=== PATIENT | female | born 1985 | race Caucasian/White ===

== ENCOUNTER → 2022-04-01 14:49 | Outpatient (BNVA) | payer MEDICAID, SELFPAY | PROVIDERS: Family Provider Family Medicine; PCP Family Medicine; Referring Provider Nurse Practitioner Family; Visit Provider Physician Assistant | DX: M54.16 Radiculopathy, lumbar region (principal); M51.36 Other intervertebral disc degeneration, lumbar region | CPT/HCPCS: 72110 ==

== ENCOUNTER 2022-04-30 18:40 | Inpatient (IN) | payer MEDICAID, SELFPAY ==
--- NOTE | 2022-04-29 13:26 | P.ANESASSM_ITS ---
Pre-Anesthetic Assessment Height/Weight: Height 1.73 m Operation Date: 04/30/22 10:40 Proposed Procedures p Posterior Lumbar Interbody Fusion L4-5 L5-S1 [id number]/25391/63362/44109/m54.16/m51.36(Not Applicable) - Angel Palmer, DO Familial anesthetic complications: PONV Social No alcohol and No tobacco Exam alert, oriented x 3, clear to auscultation bilaterally and regular rate & rhythm Airway Mallampati: Class II Dentition: full Pulmonary None reported CV/HEM None reported None reported Hepatic None reported GI None reported Metabolic None reported Musc/skel None reported Neuropsych None reported Spinal cord stimulator Anesthetic Plan ASA status: 2 Anesthesia: General Risk of > 500 ml blood loss (7ml/kg in children): No Medications/Allergies Home Medications Medication Instructions Recorded Confirmed Last Taken Type hydrocodone 5 mg-acetaminophen 325 1 tab PO BID PRN Pain 05/31/21 04/29/22 04/28/22 History mg tablet meloxicam 7.5 mg tablet 7.5 mg PO DAILY 05/31/21 04/29/22 04/29/22 History Intraoperative neuromonitoring #1 ea 04/29/22 Unknown Rx duloxetine 20 mg capsule,delayed 20 mg PO BID 04/29/22 04/29/22 04/29/22 History release mirtazapine 7.5 mg tablet 7.5 mg PO DAILY 04/29/22 04/29/22 04/29/22 History tizanidine 4 mg capsule 4 mg PO TID PRN Spasms 04/29/22 04/29/22 04/28/22 History Allergies Allergy/AdvReac Type Severity Reaction Status Date / Time gabapentin Allergy Intermediate rash Verified 04/29/22 13:08 [facility] Anesthesia Medical History Lumbar radiculopathy, right Social History Smoking and tobacco status: never smoked Second hand smoke exposure: No Smoking risk assessment/counseling performed?: No Alcohol intake: never Desire information about alcohol rehabilitation?: No Counseling given: No Data Anesthesia Cardiac Studies: No Data to Display
[2022-04-29 13:28] VITALS: BMI 22.8
[2022-04-30] VITALS (17 sets, daily range): BP systolic 98–140; BP diastolic 68–79; PULSE 60–92; RESP 15–20; TEMP 36.2–36.9; O2SAT 91–99
[2022-04-30 09:49] LABS: OR HCG Qualitative Urine Negative (Negative)
[2022-04-30] MEDS: sodium chloride 0.9% 1,000 ML 30 ML IV (09:58)
--- NOTE | 2022-04-30 10:07 | P.ANESUD_ITS ---
Pre-Anesthetic Update Pre-Anesthetic Assessment: Date of Surgery/Procedure: 04/30/22 Preop Ursula gnosis: Right Foot Drop, DDD L spine, Chronic Back Pain Proposed Procedure: Operation Date: 04/30/22 12:20 Proposed Procedures p Posterior Lumbar Interbody Fusion L4-5 L5-S1 [id number]/44837/61687/m54.16/m51.36(Not Applicable) - Angel Palmer, DO Any changes to Pre-Anesthetic Assessment?: No Last Intake: Intake Last Liquid Date 04/29/22 Last Liquid Time 20:00 Last Solid Date 04/29/22 Last Solid Time 20:00 Vitals: Temperature 98.4 F 04/30/22 09:38 Temperature Source Temporal Artery S can 04/30/22 09:38 Pulse Rate 60 04/30/22 09:38 Pulse Rhythm 04/30/22 09:38 Pulse Strength 3+ Normal 04/30/22 09:38 Respiratory Rate 18 04/30/22 09:38 Blood Pressure 128/77 04/30/22 09:38 Blood Pressure Debbie n 94 04/30/22 09:38 Pulse Oximetry 96 04/30/22 09:38 Oxygen Delivery Me thod 04/30/22 09:38 Exam: Pre-Anes Outpt Exam: alert, oriented x 3, clear to auscultation bilaterally and regular rate & rhythm Cardiac Studies: No Data to Display
[2022-04-30 10:28] LABS: Basophils # 0.1 10^3/uL (0.0-0.1); Basophils % 0.9 %; Eosinophils # 0.1 10^3/uL (0.0-0.8); Eosinophils % 1.7 %; Hematocrit 43.2 % (37.0-47.0); Hemoglobin 14.3 g/dL (11.5-15.3); Lymphocytes # 3.4 10^3/uL (0.8-4.8); Lymphocytes % 48.4 %; Mean Corpuscular HGB Conc 33.1 g/dL (30.0-36.0); Mean Corpuscular Hemoglobin 29.4 pg (28.0-34.0); Mean Corpuscular Volume 88.9 fl (81-99); Mean Platelet Volume 9.4 fL (7.4-10.4); Monocytes # 0.6 10^3/uL (0.2-0.9); Monocytes % 8.5 %; Neutrophils # 2.81 10^3/uL (1.8-7.7); Neutrophils % 40.4 %; Nucleated Red Blood Cells % 0 %; Platelet Count 344 10^3/cmm (130-400); Red Blood Count 4.86 10^6/uL (4.1-5.3)
[2022-04-30] MEDS: ceFAZolin 2,000 MG in sodium chloride 0.9% (plus) 50 ML 100 MG IV ×2 (14:19→20:34)
--- NOTE | 2022-04-30 14:28 | W.PM.OPSUD ---
Surgery/Procedure H&P Update DATE OF PROCEDURE: April 30, 2022 DATE H&P PERFORMED: 04/01/22 H&P UPDATE INFORMATION: I have reviewed H&P completed within last 30 days, I have examined patient prior to procedure and No changes to prior documentation PREOP DIAGNOSIS: Right Foot Drop, DDD L spine, Chronic Back Pain PLANNED PROCEDURE: Operation Date: 04/30/22 12:20 Proposed Procedures p Posterior Lumbar Interbody Fusion L4-5 L5-S1 [id number]/31501/82468/m54.16/m51.36(Not Applicable) - Angel Palmer, DO
[2022-04-30] MEDS: vancomycin 1,000 MG SDV 1000 MG XX (15:24)
[2022-04-30] MEDS: heparin, porcine 1,000 unit/mL INJ 10 mL 10000 UNIT IRRIGATION (15:25)
--- NOTE | 2022-04-30 17:22 | SCC_ITS ---
Procedure done: 1.? L4/5 Interbody fusion with posterolateral fusion 2.? L5/S1 interbody fusion with posterolateral fusion 3.? Instrumentation L4-S1 4.? Cage at L4/5 5.? Cage L5/S1 6.? Laminectomy L4/5? with partial facetectomy 7.? Laminectomy L5/S1 with partial facetectomy 8.? use of autograft from same incision 9. allograft 10. Bone marrow aspirate from right iliac crest 11.? computer navigation/ stereotactic for spine 16 seconds of fluoroscopic guidance, for a cumulative dose of 31.4 mGy, was provided to Dr. Kulkarni by the radiology department. C-arm images of the lumbar were saved for the patient's permanent record. [facility]
--- NOTE | 2022-04-30 17:30 | XR_ITS ---
WS: [id number] Exam: XR lumbar spine 2-3V* [id number] Date/Time of Exam: 04/30/2022 5:30 PM Reason For Exam: OP PICS Comparison 04/01/2022. Intraoperative AP and lateral images of the lumbar spine are submitted. On the lateral view pedicle s crews are in place at L4, L5 and S1. Surgical retractors are noted posteriorly. Disc spacers are pres ent at L4-5 and L5-S1. No other significant finding on this limited series.
--- NOTE | 2022-04-30 17:48 | SUR.OPER ---
1745 PT LOG ROLLED TO FLOOR BED. ALL LINES INTACT. COVER PT WITH WARM BLANKETS.
--- NOTE | 2022-04-30 17:49 | P.OP_ITS ---
Operative Report Date of procedure: April 30, 2022 Pre-op diagnosis: Preop Diagnosis Right Foot Drop, DDD L spine, Chronic Back Pain Post-op diagnosis: same Procedure done: 1.? L4/5 Interbody fusion with posterolateral fusion 2.? L5/S1 interbody fusion with posterolateral fusion 3.? Instrumentation L4-S1 4.? Cage at L4/5 5.? Cage L5/S1 6.? Laminectomy L4/5? with partial facetectomy 7.? Laminectomy L5/S1 with partial facetectomy 8.? use of autograft from same incision 9. allograft 10. Bone marrow aspirate from right iliac crest 11.? computer navigation/ stereotactic for spine Surgeon: Angel Palmer Cushion Assembler: Remi Sahni Cushion Assembler: The automotive service assistant, Remi Sahni, PAC was needed for his expertise under the microscope. He was important and necessary throughout the procedure to complete in a safe and timely manner. He assisted with patient positioning prepping and draping tissue retraction suctioning of the operative field protection of the dural sac and tissue closure Estimated blood loss (mL): 500 Procedure: 1.? L4/5 Interbody fusion with posterolateral fusion 2.? L5/S1 interbody fusion with posterolateral fusion 3.? Instrumentation L4-S1 4.? Cage at L4/5 5.? Cage L5/S1 6.? Laminectomy L4/5? with partial facetectomy 7.? Laminectomy L5/S1 with partial facetectomy 8.? use of autograft from same incision 9. allograft 10. Bone marrow aspirate from right iliac crest 11.? computer navigation/ stereotactic for spine Patient is brought to the operative suite.? After undergoing anesthesia, the patient had neuro monitoring attached.? Patient was then placed in the prone position on the Pavel table.? All areas of impingement were well-padded.? Patient was then prepped and draped in the normal sterile fashion.? Skin incision was then made over the L3 to S1 level.? Subperiosteal dissection was made out to the transverse processes of L4, L5 and S1 sacral ala. Next attention was brought to obtaining the bone marrow aspirate.? The [employer] bone marrow aspirate kit was used to aspirate bone marrow aspirate from the right iliac crest.? This was done by using the sharp probe to open up the bone.? Aspiration was performed and then the blunt probe was then used to dissect down to through the bone tunnel.? An aspirating well drawn back a millimeter approximately 20 cc of bone marrow aspirate was used.? And mixed with the allograft and autograft bone that will be used. Was brought to placing the fiducial for using the computer navigation.? 2 pins were placed into the right iliac crest.? These pins were later be removed.? The fiducial was attached to this.? The C-arm was then brought in and spun around the patient.? The information that was loaded in from the C-arm was loaded the computer and then this was used later for placing the pedicle screws. The technique for placing the pedicle screws was to use a drill followed by the gearshift probe linked to computer navigation.? Followed by the ball probe to feel the superior inferior medial lateral lyn of the pedicles.? Then placement of the screws using computer navigation.? Was done at each pedicle.? Screws were placed at L4 bilaterally L5 bilaterally and S1 bilaterally.? Next attention was brought to performing the laminectomy ofL5.? This was done using the high-speed bur Kerrisons and curettes.? Once the lamina was removed and then attention was brought to performing a partial facetectomy on the contralateral side.? This was done again using the high-speed bur curettes and Kerrisons.? The ligamentum flavum was taken down bilaterally from L5 to S1.? Attention was then brought to the facet on the ipsilateral side.? The facet was taken down.? The S1 nerve was decompressed as it passed around the S1 pedicle.? The laminectomy was done for purposes of decompressing the nerve as well as placement of the cage.? The L5 nerve was identified as it traversed through the L5/S1 foramen.? The thecal sac was identified and retracted.? The L5/S1 disc base was identified.? Using a knife the disc base was opened.? And then sequential [place] were placed.? The first shaver was a 6 and the last shaver was a 7.? Using a pituitary and down going curette the endplates were scraped and disc material was removed from the space.? Once adequate decompression of the disc base was felt to be had.? Osteoamp sponge was packed into the anterior aspect of the disc base.? Then a size 7 cage from [employer] was placed after packing osteoamp into the cage.? While placing the cage the thecal sac and S1 nerve was protected.? C arm was used to ensure that the cages placed in the appropriate position. Next attention was brought to performing the laminectomy ofL4.? This was done using the high-speed bur Kerrisons and curettes.? Once the lamina was removed and then attention was brought to performing a partial facetectomy on the contralateral side.? This was done again using the high-speed bur curettes and Kerrisons.? The ligamentum flavum was taken down bilaterally from L4 to L5.? Attention was then brought to the facet on the ipsilateral side.? The facet was taken down.? The L5 nerve was decompressed as it passed around the L5 pedicle.? The laminectomy was done for purposes of decompressing the nerve as well as placement of the cage.? The L4 nerve was identified as it traversed through the L4/5 foramen.? The thecal sac was identified and retracted.? The L4/5 disc base was identified.? Using a knife the disc base was opened.? And then sequential [place] were placed.? The first shaver was a 9 and the last shaver was a 9.? Using a pituitary and down going curette the endplates were scraped and disc material was removed from the space.? Once adequate decompression of the disc base was felt to be had.? Osteoamp sponge was packed into the anterior aspect of the disc base.? Then a size 8 cage from [employer] was placed after packing osteoamp into the cage.? While placing the cage the thecal sac and L5 nerve was protected.? C arm was used to ensure that the cages placed in the appropriate position. There is symptomatic scar tissue located at each of these levels.? Which was worked around. Attention was then brought to attaching the rods to the screws placed in the L4 bilaterally, L5 bilaterally and S1 bilaterally.? Caps were torqued into position. Locking the construct in place. Wound was copiously irrigated and then attention was brought to decorticating the facets and transverse processes laterally.? Bone that was taken down from the lamina was used along with osteoamp fibers and sponges were packed into the lateral gutters along the facet joints.? This was done bilaterally. Wound was then closed in a layered fashion starting with the thoracolumbar fascia.? 0-vicryl was used the sub cutaneous tissue was closed with 2-0 vicryl and skin with 4-0 monocryl.? Glue was then used to seal the skin and a steril dressing was applied.? Patient was then placed in the supine position. The endotracheal tube was removed and patient was transferred to the PACU in stable condition.
[2022-04-30] MEDS: meperidine 50 mg/mL INJ 12.5 MG IVP (18:19)
--- NOTE | 2022-04-30 19:33 | PC.NURSE ---
Pt transported by surgical services to room 255-1 via hospital bed. Pt VSS, pt family is now at bedside. Pt remains sedated from procedure at this time.
[2022-04-30] MEDS: lactated ringers 1,000 ML 90 ML IV (20:34)
[2022-04-30] MEDS: docusate sodium 100 mg Capsule PO (20:35)
[2022-04-30] MEDS: duloxetine 20 mg Capsule PO (20:35)
[2022-04-30] MEDS: HYDROcodone-acetaminophen 5-325 mg Tablet PO (20:36)
[2022-04-30] MEDS: morphine 4 mg/mL SDV 1 mL 2 MG IVP (21:43)
[2022-05-01] VITALS (10 sets, daily range): BP systolic 96–105; BP diastolic 53–70; PULSE 66–84; RESP 16–18; TEMP 36.6–37.2; O2SAT 90–95
[2022-05-01] MEDS: ketorolac 30 mg/mL INJ IVP ×3 (00:25→23:43)
[2022-05-01] MEDS: morphine 4 mg/mL SDV 1 mL 2 MG IVP ×4 (00:26→23:43)
[2022-05-01] MEDS: ceFAZolin 2,000 MG in sodium chloride 0.9% (plus) 50 ML 100 MG IV ×2 (03:54→12:45)
[2022-05-01] MEDS: HYDROcodone-acetaminophen 5-325 mg Tablet PO ×3 (03:58→22:48)
--- NOTE | 2022-05-01 07:12 | PC.NURSE ---
Surgeon here on rounds, pt seen and assessed. Procedure discussed w/pt and therapy goals. Pt to have meadows removed after therapy today, hemovac drain to remain in until tomorrow. All questions answered.
--- NOTE | 2022-05-01 07:17 | PM.PN ---
Subjective Subjective: POD 1 Patient resting comfortably. Reports mild back pain. Denies any leg pain. Denies any chest pain, shortness of breath or headaches. Vitals/I&O/Wt Last Vital Signs Temp 97.9 F 05/01/22 04:00 Pulse 66 05/01/22 04:00 Resp 17 05/01/22 05:07 BP 100/64 05/01/22 04:00 Pulse Ox 92 05/01/22 04:00 O2 Del Method 05/01/22 04:00 O2 Flow Rate 2 04/30/22 18:51 04/30/22 05/01/22 05/01/22 22:59 06:59 14:59 Intake Total 1470 / 1520 290 / 1810 Output Total 500 / 500 530 / 1030 Balance 970 / 1020 -240 / 780 Weight last 48 hrs Weight 150 lb Physical Exam Narrative: Patient presents alert and oriented x3 with a good general appearance normal mood and affect. Normal coordination normal stability. Mild tenderness around the incisional site with the incision appear to be clean and dry with Hemovac intact.. No signs of erythema or drainage. No signs of infection. Patient denies any fevers or chills. Improvement of the right EHL. 4/5 motor strength both lower extremities with negative straight leg raise bilaterally. Calves are supple no medial thigh tenderness. Pulses are 2+ at the dorsalis pedis and posterior tibial region. Good capillary refill throughout normal sensation light touch both lower extremities. Urinary Catheter Management: Conrad Latex: Cath Placed During This Visit: yes Reason for Continuing Indwelling Catheter: Perioperative Use in Selected Surgeries Urinary Catheter Date of Insertion: 04/30/22 Urinary Catheter Time of Insertion: 14:40 Data 04/30/22 09:54 Other data: Hemovac with 330 mL out hold until tomorrow. A&P Assessment and plan (1) Status post lumbar spinal fusion: Physical therapy to work with her today and work on exercises for her right foot drop and mobilize in the halls. Continue incentive spirometry for pulmonary toilet. We will discontinue Conrad catheter. Hold Hemovac drain until tomorrow. Plan for an H&H this am. We will plan for discharge home tomorrow. (2) Right foot drop: Attestations Medical Necessity Statement*: home tomorrow Coding Level of Care Code Acute Ict Quality Assurance Engineer for Chg Fwd Diagnoses Status post lumbar spinal fusion Z98.1 Right foot drop M21.371
[2022-05-01 08:28] LABS: Hematocrit 32.8 % (37.0-47.0)
[2022-05-01] MEDS: mirtazapine 15 mg Tablet 7.5 MG PO (09:36)
[2022-05-01] MEDS: duloxetine 20 mg Capsule PO ×2 (09:37→18:02)
[2022-05-01] MEDS: lactated ringers 1,000 ML 90 ML IV ×2 (09:45→22:43)
--- NOTE | 2022-05-01 13:04 | PC.CHAP ---
Pastoral Care Encounter/Spiritual Assessment Type of Contact [] Declined ring striker visit [] Patient/Family/Request visit [] Outpatient visit [] Follow-up visit [] Physician referral [] Code/Alert [x] Routine visit [] Staff referral [] Actively dying [] Patient sleeping [] Family support [] [] Out of room [] Palliative care [] [x] Receiving care in room [] Pre-surgical visit [] Trauma [] Long length of stay [] ICU visit [] Other: Relational/Emotional Strength [x] Patient feels connected with others/family/visitors/staff [] Distress [] Loneliness/isolation [] Abandonment Spirituality of Patient [x] Person of Moni [] Attends Zoroastrian of their Moni [x] Believes in Prayer [] Reads Bible or Restorationism materials [] There are Spiritual issues to be addressed Building Attendant Interventions [x] Prayer [x] Active listening [x] Non-anxious presence [x] Spiritual/emotional support [] Crisis/trauma care [x] Spiritual counseling [] Bereavement support [] Provided bereavement packet [] Provided Bible/devotional materials [] Provided toy/stuffed animal, coloring book to patient or family member [] Provided Communion [] Anointing/[place] [] Salvation [x] Completed spiritual assessment [] Other: Impact on Illness or Injury [] Angry [] Fearful [] Anxious [] Often cries [] Exhaustion [] Unable to work [] Unable to attend mu-ism [] Unable to walk/stand [] Unable to read [] Unable to drive [] Unable to eat/drink [] Unable to sleep [] Unable to be with family [] Patient intubated [] Other: Summary hip replacement has a good attitude well benny rowan Time spent with patient 10 mins
[2022-05-01] MEDS: docusate sodium 100 mg Capsule PO (18:02)
[2022-05-02 01:07] VITALS: BP 109/62; PULSE 73; RESP 16; TEMP 36.8; O2SAT 91
[2022-05-02] MEDS: HYDROcodone-acetaminophen 5-325 mg Tablet PO ×2 (04:27→12:34)
[2022-05-02 04:56] VITALS: BP 105/67; PULSE 63; RESP 16; TEMP 36.6; O2SAT 90
[2022-05-02 06:24] VITALS: RESP 17
[2022-05-02] MEDS: morphine 4 mg/mL SDV 1 mL 2 MG IVP (06:24)
--- NOTE | 2022-05-02 06:45 | PC.NURSE ---
Surgeon here to f/u w/pt. Pt seen and assessed. NO received and noted to pull hemovac drain and replace drsg to back. Pt to plan to d/c home today w/ f/u appt in one week
--- NOTE | 2022-05-02 06:48 | P.PN_ITS ---
Subjective Subjective: POD 2 Patient resting comfortably. Back is sore legs are better strength is improving in the right lower extremity. Denies any belly pain. Denies any shortness of breath chest pain or headaches. Vitals/I&O/Wt Last Vital Signs Temp 97.9 F 05/02/22 04:56 Pulse 63 05/02/22 04:56 Resp 17 05/02/22 06:24 BP 105/67 05/02/22 04:56 Pulse Ox 90 05/02/22 04:56 O2 Del Method 05/01/22 17:57 O2 Flow Rate 2 04/30/22 18:51 05/01/22 05/01/22 05/02/22 14:59 22:59 06:59 Intake Total 2057.5 / 2057.5 1240 / 3298.5 Output Total 160 / 160 200 / 360 Balance 2057.5 / 2057.5 1080 / 3138.5 -200 / 2938.5 Physical Exam Narrative: Patient presents alert and oriented x3 with a good general appearance normal mood and affect. Normal coordination normal stability. Mild tenderness around the incisional site with the incision appear to be lean and dry with Hemovac intact. No signs of erythema or drainage. No signs of infection. Patient denies any fevers or chills. 5/5 motor strength both lower extremities with negative straight leg raise bilaterally. Calves are supple no medial thigh tenderness. Pulses are 2+ at the dorsalis pedis and posterior tibial region. Good capillary refill throughout normal sensation light touch both lower extremities. Urinary Catheter Management: Conrad Latex: Cath Placed During This Visit: yes Reason for Continuing Indwelling Catheter: Perioperative Use in Selected Surgeries Urinary Catheter Date of Insertion: 04/30/22 Urinary Catheter Time of Insertion: 14:40 Data 05/01/22 08:12 A&P Assessment and plan (1) Status post lumbar spinal fusion: Will encourage physical therapy to mobilize. Encourage home incentive spirometry. We will work for discharge home later this morning. Have her follow-up in the office in 1 week's time for a wound check. Instructed no bending lifting or twisting but to continue walking program with a walker. Call if she is having problems. Attestations Medical Necessity Statement*: Home later this morning Coding Level of Care Code Acute Gas Operations Analyst for Jeremías Tatum Diagnoses Status post lumbar spinal fusion Z98.1
[2022-05-02 07:44] VITALS: BP 104/65; PULSE 66; RESP 16; TEMP 36.7; O2SAT 94
[2022-05-02] MEDS: duloxetine 20 mg Capsule PO (09:40)
[2022-05-02] MEDS: mirtazapine 15 mg Tablet 7.5 MG PO (09:40)
[2022-05-02] MEDS: acetaminophen 325 mg Tablet 650 MG PO (09:48)
[2022-05-02 11:34] VITALS: BP 102/69; PULSE 72; RESP 14; TEMP 36.7; O2SAT 97
--- NOTE | 2022-05-02 12:08 | PC.NURSE ---
1045 Hemovac drain removed patient tolerated well area cleansed with ns and covered with 4x4 and tegaderm. dressing to back incision removed and new silverlon surgical dressing applied hipolito line intact no drainage noted and steri ctrips intact.
[2022-05-02 13:07] VITALS: BP 102/69; PULSE 72; RESP 14; TEMP 36.7; O2SAT 97
--- NOTE | 2022-05-05 15:12 | PM.DCS ---
Discharge Providers Date of Admission: 04/30/22 18:40 Date of Discharge: May 02, 2022 Attending Provider at Admission: Angel Palmer DO Attending Provider at Discharge: Angel Palmer DO Primary Care Provider: Víctor Waldron MD Diagnoses at Discharge Discharge Diagnosis (1) Status post lumbar spinal fusion: Status: Acute Reason for Visit Reason for Visit: lumbar fusion l4/5 l5/s1 Hospital Course Hospital Course uneventful Physical Exam Urinary Catheter Management: Conrad Latex: Cath Placed During This Visit: yes Reason for Continuing Indwelling Catheter: Perioperative Use in Selected Surgeries Urinary Catheter Date of Insertion: 04/30/22 Urinary Catheter Time of Insertion: 14:40 Discharge Data Studies Completed and Pending Completed Studies During Hospitalization Category Date Time Status XR lumbar spine 2-3V* [id number] Routine Exams 04/30/22 17:30 Completed Laboratory Results WBC 7.0 10^3/uL (4.0-10.0) 04/30/22 09:54 RBC 4.86 10^6/uL (4.1-5.3) 04/30/22 09:54 Hgb 11.0 g/dL (11.5-15.3) L 05/01/22 08:12 Hct 32.8 % (37.0-47.0) L 05/01/22 08:12 MCV 88.9 fl (81-99) 04/30/22 09:54 MCH 29.4 pg (28.0-34.0) 04/30/22 09:54 MCHC 33.1 g/dL (30.0-36.0) 04/30/22 09:54 RDW 13.0 % (12.1-15.1) 04/30/22 09:54 Plt Count 344 10^3/cmm (130-400) 04/30/22 09:54 MPV 9.4 fL (7.4-10.4) 04/30/22 09:54 Neut % (Auto) 40.4 % 04/30/22 09:54 Lymph % (Auto) 48.4 % 04/30/22 09:54 [place] % (Auto) 8.5 % 04/30/22 09:54 Eos % (Auto) 1.7 % 04/30/22 09:54 Baso % (Auto) 0.9 % 04/30/22 09:54 Neut # (Auto) 2.81 10^3/uL (1.8-7.7) 04/30/22 09:54 Lymph # (Auto) 3.4 10^3/uL (0.8-4.8) 04/30/22 09:54 [place] # (Auto) 0.6 10^3/uL (0.2-0.9) 04/30/22 09:54 Eos # (Auto) 0.1 10^3/uL (0.0-0.8) 04/30/22 09:54 Baso # (Auto) 0.1 10^3/uL (0.0-0.1) 04/30/22 09:54 Nucleated RBC % (auto) 0 % 04/30/22 09:54 Nucleated RBCs # 0.0 /100WBC 04/30/22 09:54 Urine HCG, Qual Negative (Negative) 04/30/22 09:47 Blood Type A Positive 04/30/22 09:54 Rho(D) Type Positive 04/30/22 09:54 Antibody Screen Negative 04/30/22 09:54 Vitals Last Vital Signs Temp 98.0 F 05/02/22 13:07 Pulse 72 05/02/22 13:07 Resp 14 05/02/22 13:07 BP 102/69 05/02/22 13:07 Pulse Ox 97 05/02/22 13:07 O2 Del Method 05/02/22 11:34 O2 Flow Rate 2 04/30/22 18:51 Discharge Plan Discharge Patient Disposition: Home Condition: Stable Prescriptions: New hydrocodone-acetaminophen 5-325 mg Tablet 1 - 2 tab PO Q4H PRN (Reason: Postop pain) Qty: 40 0RF Continued (DME) Intraoperative neuromonitoring See Rx Instructions .ROUTE .MEDSUPPLY Qty: 1 0RF Rx Instructions: Intraoperative neuromonitoring mirtazapine 7.5 mg Tablet 3.75 mg PO BEDTIME duloxetine 20 mg Capsule,Delayed Release(Dr/Ec) 20 mg PO BEDTIME acetaminophen 500 mg Tablet 1,000 mg PO Q6H PRN (Reason: Pain) albuterol sulfate 90 mcg/actuation HFA aerosol inhaler 2 puff INHALATION Q4H PRN (Reason: Shortness Of Breath) tizanidine 4 mg capsule 4 mg PO BEDTIME PRN (Reason: Spasms) Held meloxicam 15 mg tablet 15 mg PO QAM Hold Instructions: Resume on 06/02/22. Discontinued hydrocodone-acetaminophen 10-325 mg tablet 0.5 - 1 tab PO Q8H MDD 3 tabs PRN (Reason: Pain) Discharge Orders: Discharge Order (Routine); Ordered 05/02/22 Ordered By: Remi Sahni Referrals: Angel Palmer DO [Physician] - 4-7 days (This appointment has been scheduled: April at time of 3:15 pm) Discharge Diet: Advance as tolerated Discharge Activity: Limit activity as instructed Patient Instructions: Hydrocodone/Acetaminophen (By mouth), Foot Drop (GEN), Lumbar Spinal Fusion (DC), Opioid Safety Activity Restrictions/Additional Instructions: Thank you for choosing [facility] for your care! The following is a list of instructions, from your provider, to follow upon your discharge to ensure you have the optimal recovery from your recent injury or surgery. Follow-up care is a mccallum part of your treatment and safety. Be sure to make and go to all appointments and call your doctor if you are having problems. If you do not already have a follow-up appointment made, call Dr. Palmer's] office in the next 1-3 days to make follow up appointment for 1 weeks at [phone]. It is also a good idea to know your test results and keep a list of the medicines you take. Medications will be prescribed for you at your provider's discretion. These medications are to be used as instructed; if they are taken more often that prescribed they will not be refilled early and in most cases will not be refilled at all. > When a refill is needed, you should contact anil brannon 2-3 business days before your prescription runs out. Medications will NOT be refilled by buttonholer providers after hours! > Many pain medications contain Tylenol (Acetaminophen). Do not consume more than 4,000 mg of Tylenol per day in total with any combination of medications. > Pain medications can cause constipation. Please use an over the counter stool softener as directed, while taking pain medications. Consult your local pharmacist with questions or recommendations on stool softeners. If constipation persists, contact our office or your primary care provider. > While under our care, you are not to receive pain medications or other controlled substances from any other provider unless our office is notified and approves. Any attempts to do so will result in refusal to prescribe any further pain medications and possible dismissal from our practice. ? Walking is essential for the healing process after surgery. We would like you to slowly advance your walking. This should be done on relatively flat clear ground (inside or out) or can be done on a treadmill. Remember this goal does not have to happen all at once, slowly increase your distance and duration. This can be broken into more more than one walk per day as tolerated. Patients who walk as directed after surgery rarely require Physical Therapy. In the unlikely event this issue arises your provider will direct hospital staff to make the appropriate arrangements. ? No lifting over 5 pounds {a gallon of milk) or bending/twisting until further notice. Each of these activities places an unnecessary amount of stress onto the body and can impede the delicate healing process. > Instead of bending at the waist, keep your back straight and bend at the knees. > Instead of twisting your torso, keep your back straight and turn your entire body with your feet. ? You may sleep in any position which makes you comfortable. Many patients find comfort sleeping in a reclining chair. It is not abnormal to have difficulty sleeping for the first several weeks following your surgery. We recommend trying Benadry! or Tylenol PM as directed to help with your sleeping difficulties. Both medications are over the counter and available without prescription. ? NO SMOKING!!! Smoking dramatically increases the probability of developing postoperative wound infections. ? Common complaints after lumbar and/or thoracic spine surgery include, but are not limited to: numbness and/or tingling in the legs, pain around the incision and surrounding tissues, muscle spasms, or stiffness of the middle to low back. Contact our office if these symptoms persist or if an acute change occurs. ? No driving for the first 3-5days, and not while taking narcotics until seen at your follow-up appointment and cleared. There are no restrictions for riding on short trips, however if you take a longer trip, arrangements should be made to make regular stops to get out of the vehicle and stretch . ? Swelling is an unfortunate event that will take place with any surgery and is the primary source of your postoperative discomfort. While walking and regular approved activities helps control inflammation, there are additional steps you can take to minimize swelling. > Place ice over the surgical site and surrounding tissue for twenty minutes, followed by applying a low/medium heat (heating pad) for an additional twenty minutes every 1-2 hours as needed for painrelief. > You may use of over the counter anti-inflammatory medications (Ibuprofen, Motrin, Aleve, Advil, etc) as directed on the package label. These types of medicines will significantly reduce the amount of discomfort you experience after surgery from swelling. It should be noted that if you have and allergy to any of these medications, or a history of ulcers or kidney disease you should consult you primary care provider prior to starting these medications. Discharge Attestations Time Spent in Discharge Care*: less than 30 min Quality Metrics Clinical Quality Measures [ No reported AMI, CVA or VTE this stay] Coding Level of Care Code Acute [facility] note Diagnoses Status post lumbar spinal fusion Z98.1
== END 2022-05-02 13:00 | disposition home or self-care (01) | DRG 455 ==
LOC: MEDSURG 18:41
PROVIDERS: Physician Assistant; Admitting Provider Orthopaedic Surgery; PCP Family Medicine; Visit Provider Orthopaedic Surgery
PROC: 0SG00AJ Fusion of Lumbar Vertebral Joint with Interbody Fusion Device, Posterior Approach, Anterior Column, Open Approach (ICD-10-PCS; CPT 22612; principal; 2022-04-30 11:50)
DX: M51.16 Intervertebral disc disorders with radiculopathy, lumbar region (principal); M21.371 Foot drop, right foot; Z98.1 Arthrodesis status; Z45.42 Encounter for adjustment and management of neurostimulator; G89.29 Other chronic pain
CPT/HCPCS: 36415; 51702; 72020; 72100; 76000; 81025; 84703; 85014; 85018; 85025; 86850; 86900; 97161; 97530; C1713; C9359; J0330; J0690; J1100; J1170; J1200; J1644; J1885; J2175; J2250; J2270; J2405; J2704; J2710; J3010; J3370; J3490; J7030; J7120

== ENCOUNTER → 2022-06-17 09:11 | Outpatient (BNVA) | payer MEDICAID, SELFPAY | PROVIDERS: PCP Family Medicine; Visit Provider Orthopaedic Surgery | DX: Z47.89 Encounter for other orthopedic aftercare (principal); Z98.1 Arthrodesis status; R20.0 Anesthesia of skin | CPT/HCPCS: 72100 ==

== ENCOUNTER → 2022-07-29 09:09 | Outpatient (BNVA) | payer MEDICAID, SELFPAY | PROVIDERS: PCP Family Medicine; Visit Provider Orthopaedic Surgery | DX: Z98.1 Arthrodesis status (principal) | CPT/HCPCS: 72100 ==

== ENCOUNTER 2022-09-08 09:47 | Outpatient (CLI) | payer MEDICAID, SELFPAY ==
--- NOTE | 2022-09-08 10:15 | MR_ITS ---
WS: [email or web address] MRI LUMBAR SPINE NONCONTRAST TECHNIQUE: Sagittal T1, T2 and STIR imaging. Axial T1 and T2 imaging. CLINICAL INFORMATION: back pain COMPARISON: MRI February 21, 2022 FINDINGS: Mild lumbar curve. No acute compression. Prior postoperative changes pedicle screw fixation L4-S1. In terbody fusion grafts L4-L5 and L5-S1. Incidental small postoperative seroma in the laminectomy defec ts. No significant central canal stenosis. L1-L2: Mild facet arthropathy. Spinal canal and foramen are patent. L2-L3: No significant disc bulging. Mild facet arthropathy. Spinal canal and foramen are patent. L3-L4: Mild annular bulging with slight narrowing of the subarticular recess bilaterally. Mild centra l canal stenosis slightly progressed. Mild facet arthropathy. Foramen are patent. L4-L5: Pedicle screw fixation. Laminectomy defects. Slight anterolisthesis L4 on L5. Foramen are sanchez nt. L5-S1: Pedicle screw fixation. Laminectomy defects. Mild bilateral bony foraminal narrowing. MR/MR lumbar spine wo con* [id number] IMPRESSION: 1. Postoperative changes L4-S1 pedicle screw fixation with interbody fusion gr afts new compared to previous. 2. No evidence of recurrent disc extrusion. No significant central canal steno sis. 3. Mild annular bulging with a small central protrusion L3-L4 with mild centra l canal stenosis. Slight narrowing of the LEFT greater than RIGHT subarticular recess. This is slightly progressed. 4. Mild bony foraminal narrowing L5-S1. 5. Tiny syrinx or myomalacia seen on the cervical cord on the director specialty imaging at C7 likely incidental. This can be followed up with cervical spine MRI
== END 2022-09-08 09:48 | disposition home or self-care (01) ==
LOC: RAD 09:51
PROVIDERS: PCP Family Medicine; Visit Provider Orthopaedic Surgery
DX: Z98.1 Arthrodesis status (principal); M51.26 Other intervertebral disc displacement, lumbar region; M48.07 Spinal stenosis, lumbosacral region
CPT/HCPCS: 72148

== ENCOUNTER → 2022-10-30 12:59 | Outpatient (BNVA) | payer MEDICAID, SELFPAY | PROVIDERS: PCP Family Medicine; Visit Provider Orthopaedic Surgery | DX: M54.9 Dorsalgia, unspecified (principal); G57.00 Lesion of sciatic nerve, unspecified lower limb; Z98.890 Other specified postprocedural states; Z98.1 Arthrodesis status | CPT/HCPCS: 72100 ==

== ENCOUNTER 2023-01-01 08:58 | Outpatient (CLI) | payer MEDICAID, SELFPAY ==
--- NOTE | 2023-01-01 09:30 | MR_ITS ---
WS: [id number] MRI CERVICAL SPINE NONCONTRAST TECHNIQUE: Sagittal T1, T2 and STIR imaging. Axial T2, gradient, and fiesta imaging. CLINICAL INFORMATION: R93.89 - Abnormal findings on diagnostic imaging of other... COMPARISON: None. FINDINGS: Straightening with slight reversal normal cervical lordosis. Mild disc bulging worse at C5-C6 and C6- C7. Tiny syrinx in the cervical cord at the C7 level measuring 1.3 mm in maximum AP dimension. This e xtends over approximately 5.8 mm. Cord signal otherwise normal. C2-C3: Mild facet arthropathy. Spinal canal and foramen are patent. C3-C4: Mild facet arthropathy. Spinal canal and foramen are patent. C4-C5: No significant disc bulging. Mild facet arthropathy. Spinal canal and foramen are patent. C5-C6: Minimal disc bulging with slight effacement of the ventral thecal sac. Mild facet arthropathy. Spinal canal and foramen are patent. C6-C7: Tiny central disc protrusion with slight indentation on cervical cord. Spinal canal remains pa tent. Mild facet arthropathy. Mild LEFT greater than RIGHT bony foraminal narrowing. C7-T1: No significant disc bulging. Spinal canal and foramen are patent. Visualized brain stem structures: Normal. Prevertebral soft tissues: Normal. MR/MR cervical spin wo con* [id number] IMPRESSION: 1. Straightening with slight reversal of the normal cervical lordosis. 2. Disc bulging worse at C6-C7 with a small central protrusion slight indentat ion on cervical cord. Spinal canal remains patent. 3. Mild LEFT greater than RIGHT C6-C7 bony foraminal narrowing. 4. Tiny syrinx within the cervical cord at the C7 level described above. Cord signal is otherwise normal.
== END 2023-01-01 08:59 | disposition home or self-care (01) ==
PROVIDERS: PCP Family Medicine; Visit Provider Orthopaedic Surgery
DX: R93.89 Abnormal findings on diagnostic imaging of other specified body structures (principal); M50.322 Other cervical disc degeneration at C5-C6 level; M48.02 Spinal stenosis, cervical region
CPT/HCPCS: 72141

== ENCOUNTER → 2023-01-29 11:11 | Outpatient (BNVA) | payer MEDICAID, SELFPAY | PROVIDERS: PCP Family Medicine; Visit Provider Orthopaedic Surgery | DX: M47.12 Other spondylosis with myelopathy, cervical region; Z01.818 Encounter for other preprocedural examination | CPT/HCPCS: 36415; 72050; 80053; 81001; 85025 ==

== ENCOUNTER → 2023-02-11 10:28 | Outpatient (BNVA) | payer MEDICAID, SELFPAY | PROVIDERS: PCP Family Medicine; Visit Provider Family Medicine | DX: Z01.818 Encounter for other preprocedural examination (principal) | CPT/HCPCS: 81000 ==

== ENCOUNTER 2023-02-23 05:40 | Day surgery (SDC) | payer MEDICAID, SELFPAY ==
[2023-02-20 13:53] VITALS: BMI 27.9
[2023-02-23] VITALS (10 sets, daily range): BP systolic 100–136; BP diastolic 58–82; PULSE 55–78; RESP 16–17; TEMP 36.2–36.9; O2SAT 90–100
--- NOTE | 2023-02-23 | XR_ITS ---
WS: [email or web address] C-ARM RADIOGRAPHS CERVICAL SPINE; 4 IMAGES HISTORY: c 5/6 ; c 6/7 acdf , or pic COMPARISON: None available. Intraoperative imaging during anterior cervical fusion at C5-6 and C6-7. Patient is intubated. IMPRESSION: Intraoperative imaging during anterior cervical fusion.
--- NOTE | 2023-02-23 06:26 | W.PM.OPSUD ---
Surgery/Procedure H&P Update DATE OF PROCEDURE: February 23, 2023 DATE H&P PERFORMED: 01/29/23 H&P UPDATE INFORMATION: I have reviewed H&P completed within last 30 days, I have examined patient prior to procedure and No changes to prior documentation PREOP DIAGNOSIS: Cervical spondylosis PLANNED PROCEDURE: Operation Date: 02/23/23 07:00 Proposed Procedures p 07413: C5/6, 15959: C 6/7, [id number]: cage. 19272: Instrumentation, : allograft, 98383: navigation M47.12: Cervical spondylosis with myelopathy(Not Applicable) - Angel Palmer, DO
[2023-02-23] MEDS: sodium chloride 0.9% 1,000 ML 30 ML IV (06:29)
[2023-02-23] MEDS: scopolamine 1.5 Patch 1 PATCH TRANSDERMA (06:33)
[2023-02-23 06:36] LABS: OR HCG Qualitative Urine Negative (Negative)
[2023-02-23] MEDS: lidocaine-epi 2% 20 mL INJ INJECTION (07:34)
[2023-02-23] MEDS: ceFAZolin 2,000 MG in sodium chloride 0.9% (plus) 50 ML 100 MG IV (07:34)
--- NOTE | 2023-02-23 08:43 | PM.OP ---
Operative Report Date of procedure: February 23, 2023 Pre-op diagnosis: Cervical spondylosis with radiculopathy Post-op diagnosis: same Procedure done: 1. Anterior diskectomy C5/6 2. Anterior discectomy C6/7 3. Insertion of cage C5/6 4. Insertion of Cage C6/7 5. Instrumentation with anterior plate from C5-C7 6. Use of allograft Surgeon: Angel Plamer DO Navy Material Inspector: Remi Sahni Navy Material Inspector: The operating room surgical technician, Remi Sahni, SALBADOR was needed for his expertise under the microscope. He was important and necessary throughout the procedure to complete in a safe and timely manner. He assisted with patient positioning prepping and draping tissue retraction suctioning of the operative field protection of the dural sac and tissue closure Estimated blood loss (mL): 15 Procedure: 1. Anterior diskectomy C5/6 2. Anterior discectomy C6/7 3. Insertion of cage C5/6 4. Insertion of Cage C6/7 5. Instrumentation with anterior plate from C5-C7 6. Use of allograft The patient was taken to the operating room, where he underwent general endotracheal anesthesia without complications. He was then positioned supine on the operating table, and all areas of impingement were well padded. The arms were carefully padded and tucked at his sides. A roll was placed between the shoulder blades.. An x-ray was done to determine the appropriate level for the skin incision. The entire neck was then sterilely prepped and draped in the usual fashion. Neuromonitoring was attached prior to prepping. A transverse skin incision was made and carried down to the platysma muscle. This was then split in line with its fibers. Blunt dissection was carried down medial to the carotid sheath and lateral to the trachea and esophagus until the anterior cervical spine was visualized. A needle was placed into a disc and an x-ray was done to determine its location. The longus colli muscles were then elevated bilaterally with the electrocautery unit. Self-retaining retractors were placed deep to the longus colli muscle. Attention was brought to the C5/6 level that was confirmed on x-ray. A caspar pin was placed into the C5 vertebrae and the C6 vertebrae. The disk space was then distracted. The microscope was then brought in. A radical anterior discectomies were performed at C5/6. This included complete removal of the anterior annulus, nucleus, and posterior annulus. The posterior longitudinal ligament was removed as were the posterior osteophytes. Foraminotomies were then accomplished bilaterally. This was done using a high speed miguel, kerrison rongeurs and curretes Once all of this was accomplished, the curved currette was used to check for any residual compression. The central canal was wide open as were the foramen. A high-speed bur was used to remove the cartilaginous endplates above and below the interspace. Bleeding cancellous bone was exposed. The disc space were measured and appropriate size cage were placed sterilely onto the field. Allograft graft was packed into the cages. The cage was then placed and there was good juxtaposition against the bleeding decorticated surfaces and good distraction of each interspace. Attention was brought to the next interspace. The [place] pins were removed. Bone wax was used to prevent any bleeding from occurring at the pin sites. Attention was brought to the C6/7 level that was confirmed on x-ray. A caspar pin was placed into the C6 vertebrae and the C7 vertebrae. The disk space was then distracted. The microscope was then brought in. A radical anterior discectomies were performed at C6/7. This included complete removal of the anterior annulus, nucleus, and posterior annulus. The posterior longitudinal ligament was removed as were the posterior osteophytes. Foraminotomies were then accomplished bilaterally. This was done using a high speed miguel, kerrison rongeurs and curretes Once all of this was accomplished, the curved currette was used to check for any residual compression. The central canal was wide open as were the foramen. A high-speed bur was used to remove the cartilaginous endplates above and below the interspace. Bleeding cancellous bone was exposed. The disc space were measured and appropriate size cage were placed sterilely onto the field. Allograft graft was packed into the cages. The cage was then placed and there was good juxtaposition against the bleeding decorticated surfaces and good distraction of each interspace. Attention was brought to the next interspace. The [place] pins were removed. Bone wax was used to prevent any bleeding from occurring at the pin sites. The appropriate size anterior cervical locking plate was chosen and bent into gentle lordosis. Two screws were then placed into each of the vertebral bodies at C5, C6 and C7. There was excellent purchase. A final x-ray was done confirming good position of the hardware and Cages. The locking screws were then applied, also with excellent purchase. Following a final copious irrigation, there was good hemostasis and no dural leaks. The carotid pulse was strong. The wounds were then closed in layers using 2-0 Vicryl suture for the platysma muscle, 2-0 Vicryl suture for the subcutaneous tissue, and 4-0 monocryl suture in a subcuticular skin closure. Glue was placed followed by application of a sterile dressing. The drain was hooked to bulb suction. A soft collar was applied. The patient was then carefully returned to the supine position on his hospital bed where he was reversed and extubated and taken to the recovery room having tolerated the procedure well.
[2023-02-23] MEDS: HYDROcodone-acetaminophen 5-325 mg Tablet 1 TAB PO (10:34)
--- NOTE | 2023-02-23 11:52 | ANES.PREANE2 ---
Pre-Anesthetic Assessment Height/Weight: Height 1.73 m Weight 83.461 kg Temp Pulse Resp BP Pulse Ox O2 Del Method O2 Flow Rate 98.5 F 55 L 17 124/58 96 Room Air 2 02/23/23 10:27 02/23/23 10:27 02/23/23 10:27 02/23/23 10:27 02/23/23 10:27 02/23/23 10:27 02/23/23 09:26 Preop Diagnosis: Cervical spondylosis Operation Date: 02/23/23 07:00 Proposed Procedures p 86549: C5/6, 19696: C 6/7, [id number]: cage. 83892: Instrumentation, 97797: allograft, 99736: navigation M47.12: Cervical spondylosis with myelopathy(Not Applicable) - Angel Palmer, Familial anesthetic complications: none Was Beta Nae taken within 24 hours: N/A Was Clonidine taken within 24 hours: N/A Last intake: Intake Last Liquid Date 02/22/23 Last Liquid Time 21:00 Last Solid Date 02/22/23 Last Solid Time 21:00 Social No alcohol and No tobacco Exam alert, oriented x 3, clear to auscultation bilaterally and regular rate & rhythm Airway Submandibular: within normal limits Cervical ROM: within normal limits Mallampati: Class II Musc/skel Lower Back Pain and Osteoarthritis/DJD Neuropsych chronic pain Anesthetic Plan ASA status: 3 Anesthesia: General Medications/Allergies Home Medications Medication Instructions Recorded Confirmed Last Taken Type acetaminophen 500 mg tablet 1,000 mg PO Q6H PRN Pain 05/01/22 02/20/23 Unknown History tizanidine 4 mg capsule 4 mg PO BEDTIME PRN Spasms 05/01/22 02/23/23 02/22/23 21:00 History pregabalin 75 mg capsule (Lyrica) 75 mg PO DAILY nerve pain #30 caps 06/03/22 02/23/23 02/22/23 08:00 Rx hydrocodone 5 mg-acetaminophen 325 1 tab PO Q6H PRN Postop pain 5 07/01/22 02/23/23 02/21/23 Rx mg tablet days #30 tabs [id number] Bone Growth Stimulator #1 ea 02/06/23 02/09/23 Unknown Rx celecoxib 100 mg capsule 100 mg PO BID 02/11/23 02/20/23 02/17/23 History mirtazapine 7.5 mg tablet 7.5 mg PO DAILY PRN Sleep 02/11/23 02/20/23 Unknown History hydrocodone 5 mg-acetaminophen 325 1 - 2 tab PO .Q4-6H #40 tabs 02/23/23 Unknown Rx mg tablet Allergies Allergy/AdvReac Type Severity Reaction Status Date / Time gabapentin Allergy Intermediate rash Verified 02/23/23 06:00 [facility] Anesthesia Medical History Lumbar radiculopathy, right Social History Smoking and tobacco status: never smoked Second hand smoke exposure: No Smoking risk assessment/counseling performed?: No Alcohol intake: never Desire information about alcohol rehabilitation?: No Counseling given: No Data Anesthesia Cardiac Studies: No Data to Display
--- NOTE | 2023-02-23 17:02 | ANE.PACU2 ---
Inpatient post-anesthesia follow up: Airway intact: Yes Vital signs: Temperature 98.5 F Pulse Rate 55 Respiratory Rate 17 Blood Pressure 124/58 Pulse Oximetry 96 Oxygen Delivery Me thod Room Air Oxygen Flow Rate 2 Fraction of Inspir ed Oxygen Hydration adequate: Yes Nausea and vomiting: No Pain level: 3 Mental status: Baseline
== END 2023-02-23 08:42 | disposition home or self-care (01) ==
LOC: OR 08:43 → MEDSURG 09:19
PROVIDERS: Physician Assistant; PCP Family Medicine; Visit Provider Orthopaedic Surgery
PROC: 0RB30ZZ Excision of Cervical Vertebral Disc, Open Approach (ICD-10-PCS; CPT 22551; principal; 2023-02-23 07:00)
DX: M47.22 Other spondylosis with radiculopathy, cervical region (principal)
CPT/HCPCS: 20930; 22551; 22552; 22845; 22853; 72040; 76000; 81025; 84703; C1713; C1763; C9359; G0378; J0131; J0330; J0690; J1100; J2250; J2405; J2704; J2710; J3010; J3490; J7030; L0172

== ENCOUNTER → 2023-03-03 14:35 | Outpatient (BNVA) | payer MEDICAID, SELFPAY | PROVIDERS: PCP Family Medicine; Visit Provider Orthopaedic Surgery | DX: Z98.1 Arthrodesis status (principal) | CPT/HCPCS: 72040 ==

== ENCOUNTER → 2023-04-09 11:19 | Outpatient (BNVA) | payer MEDICAID, SELFPAY | PROVIDERS: PCP Family Medicine; Visit Provider Orthopaedic Surgery | DX: Z47.89 Encounter for other orthopedic aftercare (principal); Z98.1 Arthrodesis status | CPT/HCPCS: 72040 ==

== ENCOUNTER → 2023-05-21 08:56 | Outpatient (BNVA) | payer MEDICAID, SELFPAY | PROVIDERS: PCP Family Medicine; Visit Provider Orthopaedic Surgery | DX: Z98.1 Arthrodesis status (principal); M51.36 Other intervertebral disc degeneration, lumbar region; M54.16 Radiculopathy, lumbar region | CPT/HCPCS: 72040 ==

== ENCOUNTER 2023-06-24 08:33 | Outpatient (CLI) | payer MEDICAID, SELFPAY ==
--- NOTE | 2023-06-24 08:45 | MR_ITS ---
WS: [id number] MRI LUMBAR SPINE NONCONTRAST HISTORY: low back pain, multiple prior back surgeries. COMPARISON: 08/19/2022 TECHNIQUE: Sagittal and axial multisequence imaging is submitted. New since the prior study is an anterior cervical fusion at C5-C7. Reidentified is a tiny syrinx or m yelomalacia in the cervical cord at C7. Postoperative pedicle screw fixation from L4-S1 is reidentified. Interbody fusion graft at L4-5 and L 5-S1. Incidental small fluid collection in the laminectomy defects at the operative site is unchanged extending over a length of 3.1 cm. The remaining disc spaces are well-maintained. No marrow edema. Conus terminates normally at L1. L1-L2: Minimal facet arthritis. No stenosis. L2-L3: Normal. L3-L4: Mild annular disc bulge with a central disc protrusion which is increased in size since the pr ior study. Mild narrowing of the subarticular recesses. Mild central stenosis. Mild facet arthritis. No foraminal stenosis. L4-L5: Posterior laminectomy defects. Central canal and foramina are patent. L5-S1: Facet arthritis with large laminectomy defects. Moderate LEFT and mild RIGHT foraminal stenosi s. IMPRESSION: 1. Prior posterior lumbar fusion from L4-S1 is similar in appearance with no adverse change. Large l aminectomy defects at L4-5. 2. Mild progression of foraminal stenosis at L5-S1. Now moderate on the LEFT due to osteophyte and m ild on the RIGHT. 3. Mild central and subarticular recess stenosis at L3-4. There is a small central disc protrusion w hich is increased in size since the prior study. 4. Stable syrinx versus myelomalacia at the C7 level.
== END 2023-06-24 08:34 | disposition home or self-care (01) ==
PROVIDERS: PCP Family Medicine; Visit Provider Orthopaedic Surgery
DX: Z98.1 Arthrodesis status (principal); M51.36 Other intervertebral disc degeneration, lumbar region; M54.16 Radiculopathy, lumbar region; M48.07 Spinal stenosis, lumbosacral region; M25.78 Osteophyte, vertebrae; M48.061 Spinal stenosis, lumbar region without neurogenic claudication; M47.817 Spondylosis without myelopathy or radiculopathy, lumbosacral region
CPT/HCPCS: 72148

== ENCOUNTER → 2023-07-28 09:57 | Outpatient (BNVA) | payer MEDICARE, MEDICAID, SELFPAY | PROVIDERS: PCP Family Medicine; Visit Provider Orthopaedic Surgery | DX: Z98.1 Arthrodesis status (principal); M54.16 Radiculopathy, lumbar region | CPT/HCPCS: 99214 ==

== ENCOUNTER → 2023-08-10 09:28 | Outpatient (BNVA) | payer MEDICARE, MEDICAID, SELFPAY | PROVIDERS: PCP Family Medicine; Visit Provider Anesthesiology Pain Medicine | DX: M51.36 Other intervertebral disc degeneration, lumbar region (principal); Z98.1 Arthrodesis status; M54.16 Radiculopathy, lumbar region | CPT/HCPCS: 99214 ==

== ENCOUNTER → 2023-09-15 09:05 | Outpatient (BNVA) | payer MEDICARE, MEDICAID, SELFPAY | PROVIDERS: PCP Family Medicine; Visit Provider Anesthesiology Pain Medicine | DX: Z98.1 Arthrodesis status; M51.36 Other intervertebral disc degeneration, lumbar region; M54.16 Radiculopathy, lumbar region; M51.26 Other intervertebral disc displacement, lumbar region; M48.061 Spinal stenosis, lumbar region without neurogenic claudication | CPT/HCPCS: 99214 ==

== ENCOUNTER 2024-02-17 14:28 | Outpatient (CLI) | payer MEDICARE, MEDICAID, SELFPAY ==
--- NOTE | 2024-02-17 14:33 | MM_ITS ---
WS: [email or web address] BILATERAL SCREENING DIGITAL TOMOSYNTHESIS MAMMOGRAM WITH CAD HISTORY: SCREENING COMPARISON: 05/27/2021 Bilateral CC and MLO views with tomosynthesis and synthetic mammography submitted. Computer aided det ection analyzed. Breast composition: The breasts are heterogeneously dense, which may obscure small masses. No suspici ous masses, microcalcifications or architectural distortion. MM/[place] [id number] IMPRESSION: BI-RADS: 1 - Negative FOLLOW UP: 1 Year Follow-up
== END 2024-02-17 14:29 | disposition home or self-care (01) ==
LOC: RAD 14:30
PROVIDERS: PCP Family Medicine; Visit Provider Family Medicine
DX: Z12.31 Encounter for screening mammogram for malignant neoplasm of breast (principal); R92.333 Mammographic heterogeneous density, bilateral breasts
CPT/HCPCS: 77063; 77067

== ENCOUNTER → 2025-02-14 14:31 | Outpatient (BNVA) | payer MEDICARE, SELFPAY | PROVIDERS: PCP Family Medicine; Visit Provider Orthopaedic Surgery | DX: M47.12 Other spondylosis with myelopathy, cervical region (principal); Z98.1 Arthrodesis status | CPT/HCPCS: 72110; 99213 ==